=== PATIENT | female | born 1965 | race Caucasian/White ===

== ENCOUNTER → 2020-09-28 | Outpatient (CLI) | payer BC, OTHER ==
[~2020-09-28] MED LIST: CHILDREN'S ASPI81 MG PO; CLINDAMYCIN HC300 MG PO; DICLOFENAC SODI75 MG PO; NORCO 7.5-3251 EACH PO; PHENERGAN 25 MG25 M1 PO; PROTONIX 40 MG40 M1 PO; SPIRIVA18 MCG INH; VITAMIN D1000 UNI1 PO
== END ==
LOC: EXRD 10:36
DX: M25.552 Pain in left hip (principal); G89.29 Other chronic pain
CPT/HCPCS: 73502